=== PATIENT | female | born 1990 | race Hispanic/Latino ===

== ENCOUNTER 2020-12-31 07:26 | Emergency (ER) | payer OTHER, SELFPAY ==
[2020-12-31] VITALS (20 sets, daily range): BP systolic 102–129; BP diastolic 44–79; PULSE 66–108; RESP 12–25; TEMP 37.4; O2SAT 98–100
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
--- NOTE | 2020-12-31 08:15 | PC.NURSE ---
OB RN performed nonstress test on mother for the twins. OB RN recommends ultrasound to confirm locations of both gestations. ERP notified, see orders
--- NOTE | 2020-12-31 09:34 | PC.NURSE ---
in room with Dr Yuliet Landaverde used for interpretation. Results of US and OBNST test explained to pt. Pt voiced no questions. Explained she will be discharged shortly.
[2020-12-31] MEDS: ACETAMINOPHEN 500 MG TABLET 1000 MG PO (10:17)
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
== END 2020-12-31 10:35 | disposition home or self-care (01) ==
PROVIDERS: Emergency Provider Family Medicine; PCP Physician Assistant
DX: O9A.212 Injury, poisoning and certain other consequences of external causes complicating pregnancy, second trimester (principal); S39.92XA Unspecified injury of lower back, initial encounter; O30.002 Twin pregnancy, unspecified number of placenta and unspecified number of amniotic sacs, second trimester; V49.40XA Driver injured in collision with unspecified motor vehicles in traffic accident, initial encounter; Z3A.00 Weeks of gestation of pregnancy not specified
CPT/HCPCS: 76815; 99284; A9270

== ENCOUNTER 2021-02-16 16:10 | Outpatient (CLI) | payer OTHER, SELFPAY ==
[2021-02-16 16:42] VITALS: BP 111/71; PULSE 97
[2021-02-16 17:00] VITALS: TEMP 36.8
[2021-02-16 17:46] VITALS: BP 111/71; PULSE 90
== END 2021-02-16 17:50 | disposition home or self-care (01) ==
LOC: ANHOBOP 16:20 → ANHOBPP 16:21
PROVIDERS: PCP Physician Assistant; Visit Provider Obstetrics & Gynecology
DX: O41.93X3 Disorder of amniotic fluid and membranes, unspecified, third trimester, fetus 3 (principal); Z3A.28 28 weeks gestation of pregnancy
CPT/HCPCS: 59025; 84112; 99199